=== PATIENT | male | born 1985 | race Caucasian/White ===

== ENCOUNTER 2017-12-13 15:21 | Emergency (ER) | payer SELFPAY ==
[~2017-12-13] VITALS: Ht 167.6 cm; Wt 70.0 kg
[~2017-12-13 15:21] MED LIST: AMOXICILLIN500 MG PO; BACTRIM DS1 TAB PO; FLAGYL500 MG PO; KEFLEX500 MG OR; LORTAB 5 OR; LORTAB 5/3255 MG PO; NAPROSYN500 MG PO; OMEPRAZOLE40 MG PO; TORADOL OR; TORADOL PO; ZITHROMAX250 MG OR; no home meds
[2017-12-13] MEDS ORDERED: IBUPROFEN600 MG PO (16:32)
[2017-12-13 16:40] VITALS: BP 140/84
== END 2017-12-13 16:40 | disposition home or self-care (01) | DRG 605 ==
LOC: ED 15:21
DX: S20.312A Abrasion of left front wall of thorax, initial encounter (principal); F17.210 Nicotine dependence, cigarettes, uncomplicated; W18.2XXA Fall in (into) shower or empty bathtub, initial encounter; Y93.E1 Activity, personal bathing and showering; Y92.002 Bathroom of unspecified non-institutional (private) residence as the place of occurrence of the external cause

== ENCOUNTER 2020-07-01 20:15 | Emergency (ER) | payer BC ==
[~2020-07-01] VITALS: Ht 167.6 cm; Wt 63.3 kg
[~2020-07-01 20:15] MED LIST changes: +IBUPROFEN600 MG PO
[2020-07-01 20:48] VITALS: BP 125/61
[2020-07-01] MEDS ORDERED: TOBRAMYCIN0.31 OU (20:57)
== END 2020-07-01 21:15 | disposition home or self-care (01) | DRG 125 ==
LOC: ED 20:15
DX: H10.9 Unspecified conjunctivitis (principal); F17.200 Nicotine dependence, unspecified, uncomplicated

== ENCOUNTER 2020-08-09 15:18 | Emergency (ER) | payer BC ==
[~2020-08-09] VITALS: Ht 172.7 cm; Wt 65.9 kg
[~2020-08-09 15:18] MED LIST changes: +TOBRAMYCIN0.31 OU
[2020-08-09] MEDS ORDERED: CEPHALEXIN500 M1 PO (16:43)
[2020-08-09] MEDS ORDERED: BACTRIM DS1 TAB PO (16:43)
[2020-08-09 16:55] VITALS: BP 125/87
== END 2020-08-09 16:55 | disposition home or self-care (01) | DRG 914 ==
LOC: ED 15:18
PROC: 0JCK0ZZ Extirpation of Matter from Left Hand Subcutaneous Tissue and Fascia, Open Approach (ICD-10-PCS; principal; 2020-08-09)
DX: S61.042A Puncture wound with foreign body of left thumb without damage to nail, initial encounter (principal); F17.200 Nicotine dependence, unspecified, uncomplicated; W60.XXXA Contact with nonvenomous plant thorns and spines and sharp leaves, initial encounter; Y93.H2 Activity, gardening and landscaping; Y92.007 Garden or yard of unspecified non-institutional (private) residence as the place of occurrence of the external cause

== ENCOUNTER 2023-02-21 01:30 | Emergency (ER) | payer BC ==
[~2023-02-21] VITALS: Ht 172.7 cm; Wt 65.0 kg
[~2023-02-21 01:30] MED LIST changes: +CEPHALEXIN500 M1 PO; +PREDNISONE20 MG PO
[2023-02-21] MEDS ORDERED: TOBREX OPTH5 ML/BTL OU (04:04)
[2023-02-21 04:22] VITALS: BP 115/81
== END 2023-02-21 04:14 | disposition home or self-care (01) | DRG 125 ==
LOC: ED 01:30
DX: H57.8A3 Foreign body sensation, bilateral eyes (principal)